=== PATIENT | male | born 1975 | race Caucasian/White ===

== ENCOUNTER → 2017-04-14 | Outpatient (CLI) | payer MEDICAID ==
--- NOTE | 2017-04-15 00:32 | US ---
EXAMINATION TYPE: US venous doppler duplex LE LT DATE OF EXAM: 04/15/2017 12:17 AM COMPARISON: NONE CLINICAL HISTORY: left leg edema and pain. Left leg pain and edema SIDE PERFORMED: Left TECHNIQUE: The lower extremity deep venous system is examined utilizing real time linear array sonog alberto with graded compression, doppler sonography and color-flow sonography. VESSELS IMAGED: External Iliac Vein (EIV) Common Femoral Vein Deep Femoral Vein Greater Saphenous Vein * Femoral Vein Popliteal Vein Small Saphenous Vein * Proximal Calf Veins (* superficial vessels) Left Leg: Negative for DVT. Complex area left knee posterior measuring 6.4 x 2.3 x 4.2cm suggestiv e of bakers cyst. IMPRESSION: No evidence of deep venous thrombosis in the left leg. Popliteal cyst is present.
== END | disposition home or self-care (01) ==
LOC: RADUSMAIN 23:39
PROVIDERS: ATTEND Physician Assistant
DX: R22.42 Localized swelling, mass and lump, left lower limb (principal)

== ENCOUNTER → 2017-10-23 | Outpatient (CLI) | payer MEDICAID ==
[2017-10-23 03:02] LABS: Basophils # (A) 0.1 k/uL (0-0.2); Basophils % (A) 1 %; Eosinophils # (A) 0.1 k/uL (0-0.7); Eosinophils % (A) 1 %; HCT 45.8 % (39.0-53.0); HGB 15.1 gm/dL (13.0-17.5); Lymphocytes # (A) 2.7 k/uL (1.0-4.8); Lymphocytes % (A) 41 %; MCH 29.2 pg (25.0-35.0); MCV 88.6 fL (80.0-100.0); Mean Platelet Volume 7.6; Monocytes # (A) 0.4 k/uL (0-1.0); Monocytes % (A) 6 %; Neutrophils # (A) 3.1 k/uL (1.3-7.7); Neutrophils % (A) 48 %; Platelet Count 206 k/uL (150-450); RBC 5.18 m/uL (4.30-5.90); RDW 13.4 % (11.5-15.5); WBC 6.5 k/uL (3.8-10.6)
[2017-10-23 03:03] LABS: ALT 64 U/L (21-72); AST 36 U/L (17-59); Albumin 4.5 g/dL (3.5-5.0); Alkaline Phosphatase 108 U/L (38-126); Anion Gap 12 mmol/L; Blood Urea Nitrogen 18 mg/dL (9-20); Calcium 10.3 mg/dL (8.4-10.2); Carbon Dioxide 25 mmol/L (22-30); Chloride 99 mmol/L (98-107); Potassium 4.5 mmol/L (3.5-5.1); Sodium 136 mmol/L (137-145); Total Bilirubin 0.7 mg/dL (0.2-1.3); Total Protein 7.3 g/dL (6.3-8.2)
[2017-10-23 03:41] LABS: Glucose 489 mg/dL (74-99)
[2017-10-23 13:52] LABS: Hemoglobin A1C 16.5 % (4.0-6.0)
== END | disposition home or self-care (01) ==
LOC: LABMAIN 10-22 21:50
PROVIDERS: ATTEND Nurse Practitioner
DX: R11.10 Vomiting, unspecified (principal); R63.4 Abnormal weight loss
CPT/HCPCS: 36415; 80053; 82009; 83036; 85025

== ENCOUNTER → 2017-11-08 | Outpatient (CLI) | payer MEDICAID ==
[2017-11-08 02:52] LABS: ALT 46 U/L (21-72); AST 33 U/L (17-59); Albumin 4.3 g/dL (3.5-5.0); Alkaline Phosphatase 70 U/L (38-126); Anion Gap 10 mmol/L; Blood Urea Nitrogen 25 mg/dL (9-20); Calcium 9.5 mg/dL (8.4-10.2); Carbon Dioxide 23 mmol/L (22-30); Chloride 104 mmol/L (98-107); Glucose 123 mg/dL (74-99); Potassium 4.4 mmol/L (3.5-5.1); Sodium 137 mmol/L (137-145); Total Bilirubin 0.7 mg/dL (0.2-1.3); Total Protein 7.1 g/dL (6.3-8.2)
== END | disposition home or self-care (01) ==
LOC: LABMAIN 02:17
PROVIDERS: ATTEND Family Medicine
DX: E11.9 Type 2 diabetes mellitus without complications (principal)
CPT/HCPCS: 36415; 80053; 82009

== ENCOUNTER → 2020-02-24 | Outpatient (CLI) | payer MEDICAID | END | disposition home or self-care (01) | LOC: LABMAIN 01:07 | PROVIDERS: ATTEND Nurse Practitioner | DX: Z53.9 Procedure and treatment not carried out, unspecified reason (principal) ==

== ENCOUNTER → 2020-02-24 | Outpatient (CLI) | payer MEDICAID | END | disposition home or self-care (01) | LOC: LABMAIN 18:47 | PROVIDERS: ATTEND Nurse Practitioner | DX: Z53.9 Procedure and treatment not carried out, unspecified reason (principal) ==

== ENCOUNTER → 2020-02-26 | Outpatient (CLI) | payer MEDICAID | END | disposition home or self-care (01) | LOC: LABMAIN 01:26 | PROVIDERS: ATTEND Emergency Medicine | DX: Z53.9 Procedure and treatment not carried out, unspecified reason (principal) ==

== ENCOUNTER → 2020-03-09 | Outpatient (CLI) | payer MEDICAID ==
[2020-03-10 04:17] LABS: C-Peptide 2.34 ng/mL (0.81-3.85)
[2020-03-10 05:29] LABS: Anti-DNA, DS unit <1.0 IU/mL; DNA Double-Stranded NEGATIVE (NEGATIVE)
[2020-03-10 06:37] LABS: Prolactin 19.5 ng/mL (2.1-17.7)
[2020-03-10 07:18] LABS: C Reactive Protein <0.4 mg/dL (0.0-0.8); Uric Acid 4.5 mg/dL (3.7-8.7)
[2020-03-10 07:49] LABS: Rheumatoid Factor, Qnt <4 IU/mL (0-13)
[2020-03-13 07:58] LABS: HLA B27 NEGATIVE
[2020-03-14 12:03] LABS: Growth Hormone, Human 31.1 ng/mL (<10)
== END | disposition home or self-care (01) ==
LOC: LABMAIN 18:59
PROVIDERS: ATTEND Family Medicine
DX: E11.41 Type 2 diabetes mellitus with diabetic mononeuropathy (principal); M25.50 Pain in unspecified joint; E22.0 Acromegaly and pituitary gigantism
CPT/HCPCS: 36415; 82533; 83003; 84146; 84305; 84403; 84550; 84681; 85652; 86038; 86140; 86225; 86337; 86431; 86812

== ENCOUNTER → 2020-03-10 | Outpatient (CLI) | payer MEDICAID ==
--- NOTE | 2020-03-10 09:18 | ECHOF ---
Referral Reason:R00.2 Palpitations MEASUREMENTS -------- HEIGHT: 182.9 cm WEIGHT: 101.6 kg BP: 120/78 RVIDd: 3.8 cm (< 3.3) IVSd: 1.5 cm (0.6 - 1.1) LVIDd: 4.5 cm (3.9 - 5.3) LVPWd: 1.4 cm (0.6 - 1.1) IVSs: 2.2 cm LVIDs: 2.8 cm LVPWs: 2.0 cm LA Diam: 4.5 cm (2.7 - 3.8) LAESV Index (A-L): 29.54 ml/m Ao Diam: 3.8 cm (2.0 - 3.7) AV Cusp: 2.5 cm (1.5 - 2.6) MV EXCURSION: 26.377 mm (> 18.000) MV EF SLOPE: 85 mm/s (70 - 150) EPSS: 0.2 cm MV E Alfredito: 0.67 m/s MV DecT: 227 ms MV A Alfredito: 0.68 m/s MV E/A Ratio: 0.99 RAP: 5.00 mmHg RVSP: 26.04 mmHg FINDINGS -------- Sinus rhythm. This was a technically good study. The left ventricular size is normal. There is moderate concentric left ventricular hypertrophy. O verall left ventricular systolic function is normal with, an EF between 60 - 65 %. The right ventricle is mild to moderately enlarged. LA is midly dilated 29-33ml/m2. The right atrium is normal in size. Interatrial and interventricular septum intact. The aortic valve is trileaflet and appears structurally normal. There is trace to mild mitral regurgitation. Mild tricuspid regurgitation present. Right ventricular systolic pressure is normal at < 35 mmHg. Trace/mild (physiologic) pulmonic regurgitation. The aortic root is dilated measuring 3.8cm. Normal inferior vena cava with normal inspiratory collapse consistent with estimated right atrial pre ssure of 5 mmHg. There is no pericardial effusion. CONCLUSIONS -------- 1. The left ventricular size is normal. 2. There is moderate concentric left ventricular hypertrophy. 3. Overall left ventricular systolic function is normal with, an EF between 60 - 65 %. 4. The right ventricle is mild to moderately enlarged. 5. LA is midly dilated 29-33ml/m2. 6. The aortic valve is trileaflet and appears structurally normal. 7. There is trace to mild mitral regurgitation. 8. Mild tricuspid regurgitation present. 9. Trace/mild (physiologic) pulmonic regurgitation. 10. The aortic root is dilated measuring 3.8cm. 11. There is no pericardial effusion. SERVER SYSTEMS ADMINISTRATOR: Clotilde Urias RDCS
== END | disposition home or self-care (01) ==
LOC: RADECHMAIN 07:07
PROVIDERS: ATTEND Family Medicine
DX: I08.1 Rheumatic disorders of both mitral and tricuspid valves (principal); I09.89 Other specified rheumatic heart diseases
CPT/HCPCS: 93306

== ENCOUNTER → 2020-03-10 | Outpatient (CLI) | payer MEDICAID ==
--- NOTE | 2020-03-10 08:01 | MR ---
EXAMINATION TYPE: MR pituitary wo/w con DATE OF EXAM: 03/10/2020 COMPARISON: NONE HISTORY: Acromegaly and pituitary giantism TECHNIQUE: Multiplanar, multisequence images of the brain and brainstem is performed without and with IV contras t, utilizing 10 mL intravenous Gadavist . Pituitary gland protocol. FINDINGS: There is large heterogeneous solid mass with superior convex margin in the sella with supra sellar extension measuring 1.9 cm transversely by 1.9 cm craniocaudal dimension coronal image 11, by 1.8 cm AP diameter. Lesion is fairly isointense to the white matter on T1-weighted images and hyperin tense to the white matter on T2-weighted images, postcontrast images show rim enhancement with perhap s minimal heterogeneous enhancement of the mass. Solid mass is favored, nonsimple cyst or cystic mass not entirely excluded. Mass extends slightly greater to the left of midline. There is mass effect on the optic chiasm which is slightly superiorly displaced. Lesion abuts the supraclinoid segment of th e distal left internal carotid artery coronal image 10. Pituitary stalk is not well visualized. No ob vious bony destruction or irregular margins. Some irregular enhancement along the right posterior sup erior aspect coronal image 13 and sagittal image 10 could reflect pituitary stalk enhancement with co mpression against the adjacent brain parenchyma, other etiologies not entirely excluded. No gross hydrocephalus. Craniocervical junction maintained. IMPRESSION: There is 1.9 cm heterogeneous sellar mass with suprasellar extension with local mass effe ct. 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 Neurosurgical referral advi sed.
== END | disposition home or self-care (01) ==
LOC: RADMRIMAIN 07:04
PROVIDERS: ATTEND Family Medicine
DX: E23.6 Other disorders of pituitary gland (principal); E22.0 Acromegaly and pituitary gigantism
CPT/HCPCS: 70553; A9585

== ENCOUNTER → 2020-05-01 | Outpatient (CLI) | payer MEDICAID | END | disposition home or self-care (01) | LOC: LABWHC1 11:30 | PROVIDERS: ATTEND Registered Nurse | DX: E23.2 Diabetes insipidus (principal) | CPT/HCPCS: 36415; 84295 ==

== ENCOUNTER → 2020-05-04 | Outpatient (CLI) | payer MEDICAID | END | disposition home or self-care (01) | LOC: LABMAIN 12:08 | PROVIDERS: ATTEND Registered Nurse | DX: E23.2 Diabetes insipidus (principal) | CPT/HCPCS: 36415; 84295 ==

== ENCOUNTER → 2020-05-04 | Outpatient (CLI) | payer MEDICAID | END | disposition home or self-care (01) | LOC: LABMAIN 12:12 | PROVIDERS: ATTEND Nurse Practitioner | DX: E22.0 Acromegaly and pituitary gigantism (principal) | CPT/HCPCS: 36415; 84305 ==

== ENCOUNTER → 2020-05-09 | Outpatient (CLI) | payer MEDICAID | END | disposition home or self-care (01) | LOC: LABMAIN 09:52 | PROVIDERS: ATTEND Nurse Practitioner | DX: E87.1 Hypo-osmolality and hyponatremia (principal) | CPT/HCPCS: 36415; 84295 ==

== ENCOUNTER → 2020-05-11 | Outpatient (CLI) | payer MEDICAID | END | disposition home or self-care (01) | LOC: LABMAIN 10:27 | PROVIDERS: ATTEND Physician Assistant Surgical | DX: E87.1 Hypo-osmolality and hyponatremia (principal) | CPT/HCPCS: 36415; 84295 ==

== ENCOUNTER → 2020-06-02 | Outpatient (CLI) | payer MEDICAID | END | disposition home or self-care (01) | LOC: LABMAIN 08:51 | PROVIDERS: ATTEND Internal Medicine | DX: E22.0 Acromegaly and pituitary gigantism (principal) | CPT/HCPCS: 36415; 82533 ==

== ENCOUNTER → 2020-08-17 | Outpatient (CLI) | payer MEDICAID ==
[2020-08-17 17:14] LABS: Follicle Stimulating Hormone 8.8 mIU/mL; Luteinizing Hormone 4.5 mIU/mL; T4, Free (Free Thyroxine) 1.6 ng/dL (0.80-1.80)
[2020-08-18 13:50] LABS: Growth Hormone, Human 0.6 ng/mL (<10)
== END | disposition home or self-care (01) ==
LOC: LABMAIN 08:27
PROVIDERS: ATTEND Internal Medicine
DX: E22.0 Acromegaly and pituitary gigantism (principal)
CPT/HCPCS: 36415; 82040; 83001; 83002; 83003; 84270; 84305; 84403; 84439; 84443

== ENCOUNTER → 2020-12-15 | Outpatient (CLI) | payer MEDICAID ==
[2020-12-15 07:32] LABS: Basophils # (A) 0.1 k/uL (0-0.2); Basophils % (A) 1 %; Eosinophils # (A) 0.1 k/uL (0-0.7); Eosinophils % (A) 2 %; HGB 14.3 gm/dL (13.0-17.5); Lymphocytes % (A) 32 %; MCH 29.5 pg (25.0-35.0); MCHC 33.3 g/dL (31.0-37.0); MCV 88.7 fL (80.0-100.0); Mean Platelet Volume 7.7; Monocytes # (A) 0.4 k/uL (0-1.0); Monocytes % (A) 7 %; Neutrophils # (A) 3.4 k/uL (1.3-7.7); Neutrophils % (A) 55 %; Platelet Count 174 k/uL (150-450); RBC 4.84 m/uL (4.30-5.90); RDW 13.2 % (11.5-15.5); WBC 6.2 k/uL (3.8-10.6)
[2020-12-15 12:54] LABS: African American GFR (CKD) 120.8 (60.0-200.0); Albumin 4.9 g/dL (3.8-4.9); Albumin/Globulin Ratio 2.04 (1.60-3.17); Anion Gap 12.9 mmol/L (4.00-12.00); BUN/Creat Ratio 21.33 Ratio (12.00-20.00); Blood Urea Nitrogen 19.2 mg/dL (9.0-27.0); Calcium 9.4 mg/dL (8.7-10.3); Carbon Dioxide 21.1 mmol/L (21.6-31.8); Chol/HDL Ratio 3.22 Ratio; Globulin 2.4 g/dL (1.6-3.3); HDL Cholesterol 45.6 mg/dL (40.00-60.00); LDL Cholesterol,Calculated 79.8 mg/dL (0.0-131.0); Non-African American GFR(CKD) 104.2 (60.0-200.0); Potassium 4.5 mmol/L (3.5-5.5); Prolactin 16.8 ng/mL (2.100-17.700); Total Bilirubin 0.4 mg/dL (0.30-1.20); Total Protein 7.3 g/dL (6.2-8.2); VLDL Calculation 21.6 mg/dL (5.00-40.00)
[2020-12-15 13:02] LABS: Insulin Level 10.6 mIU/mL (3.0-25.0)
[2020-12-16 02:49] LABS: Gliadin AB IgA, Deaminated NEGATIVE (NEGATIVE); Gliadin AB IgA, Unit 3.2 U/mL; Gliadin AB IgG, Deaminated NEGATIVE (NEGATIVE)
== END | disposition home or self-care (01) ==
LOC: LABMAIN 06:46
PROVIDERS: ATTEND Family Medicine
DX: Z00.00 Encounter for general adult medical examination without abnormal findings (principal); T78.1XXA Other adverse food reactions, not elsewhere classified, initial encounter; E22.0 Acromegaly and pituitary gigantism; E78.5 Hyperlipidemia, unspecified; R63.5 Abnormal weight gain
CPT/HCPCS: 36415; 80053; 80061; 82533; 82550; 82785; 83516; 83525; 84146; 84443; 85025; 86001

== ENCOUNTER 2021-02-07 11:26 | Day surgery (SDC) | payer MEDICAID ==
[2021-02-05 16:03] VITALS: BMI 32.5
[~2021-02-07 11:26] MED LIST: LACTATED RINGERS 1,000 ML IV SCH; LIDOCAINE 1% (10MG/ML) FOR IV START INTRADERMA PRN
[2021-02-07 12:01] VITALS: RESP 16; TEMP 97
[2021-02-07 12:12] LABS: Glucose,Whole Blood 95 mg/dL (75-99)
[2021-02-07] MEDS ORDERED: PROPOFOL 10 MG/ML 20 ML VIAL IV ONE (12:32)
--- NOTE | 2021-02-07 12:49 | P.PCN ---
Date of Procedure: 02/07/21 Procedure(s) Performed: BRIEF HISTORY: Patient is a 45-year-old pleasant male scheduled for an elective colonoscopy as a part of screening for colon cancer. He was recently diagnosed with pituitary macroadenoma for which she underwent surgery in April of this year. Since then has been having some abdominal bloating and occasional change in bowel habits. He was advised to have a colonoscopy because of increased risk of colon polyps. PROCEDURE PERFORMED: Colonoscopy. PREOPERATIVE DIAGNOSIS: Screening for colon cancer. IV sedation per Anesthesia. PROCEDURE: After informed consent was obtained, the patient, was brought into the endoscopy unit. IV sedation was administered by Anesthesia under continuous monitoring. Digital rectal examination was normal. Initially the Olympus CF-160 flexible video colonoscope was then inserted in the rectum, gradually advanced into the cecum without any difficulty. Careful examination was performed as the scope was gradually being withdrawn. Ileocecal valve and the appendiceal orifice were visualized and appeared normal. Prep was excellent. Mucosa of the cecum, ascending colon, transverse colon, descending colon, sigmoid colon, and rectum appeared normal. Scattered sigmoid diverticulosis. Scattered sigmoid diverticulosis Retroflexion was performed in the rectum and no lesions were seen. The patient tolerated the procedure well. IMPRESSION: Normal-appearing colon from rectum to cecum with no evidence of colorectal neoplasia . Scattered sigmoid diverticulosis RECOMMENDATIONS: Findings of this examination were discussed with the patient as well as his family.. He was advised to have a repeat screening colonoscopy at age 52.
[2021-02-07 13:05] VITALS: BP 111/70; PULSE 68
== END 2021-02-07 13:42 | disposition home or self-care (01) ==
LOC: ORWHC2ENDO 11:26
PROVIDERS: ATTEND Internal Medicine Gastroenterology
DX: Z12.11 Encounter for screening for malignant neoplasm of colon (principal); K57.90 Diverticulosis of intestine, part unspecified, without perforation or abscess without bleeding; E11.9 Type 2 diabetes mellitus without complications; I10 Essential (primary) hypertension; E78.5 Hyperlipidemia, unspecified; Z79.899 Other long term (current) drug therapy
CPT/HCPCS: J2704; G0121

== ENCOUNTER → 2021-03-08 | Outpatient (CLI) | payer MEDICAID ==
[2021-03-09 13:44] LABS: Growth Hormone, Human 2.7 ng/mL (<10)
== END | disposition home or self-care (01) ==
LOC: LABMAIN 04:19
PROVIDERS: ATTEND Family Medicine
DX: E22.0 Acromegaly and pituitary gigantism (principal)
CPT/HCPCS: 83003; 84305

== ENCOUNTER → 2021-04-12 | Outpatient (CLI) | payer MEDICAID ==
[2021-04-16 03:14] LABS: Albumin, LC/MS/MS 4.4 g/dL (3.6-5.1); Testosterone, Free, LC/MS/MS 46.4 pg/mL (46.0-224.0)
== END | disposition home or self-care (01) ==
LOC: LABWHC1 08:24
PROVIDERS: ATTEND Internal Medicine
DX: E22.0 Acromegaly and pituitary gigantism (principal)
CPT/HCPCS: 36415; 82040; 84270; 84403

== ENCOUNTER → 2021-04-16 | Outpatient (CLI) | payer MEDICAID ==
--- NOTE | 2021-04-17 00:35 | MR ---
EXAMINATION TYPE: MR pituitary wo/w con DATE OF EXAM: 04/16/2021 COMPARISON: 03/10/2020 HISTORY: Acromegaly, Post Op MRI due to elevated IGF levels CONTRAST: Standard multiplanar, multisequence MRI departmental protocol images were obtained without contrast a nd with 11 mL intravenous Gadavist gadolinium contrast. The pituitary stalk is in the midline. Optic chiasm appears normal. Pituitary gland is small. There i s no evidence of a pituitary mass. Sella turcica appears large but is mostly filled with CSF. The anterior posterior dimension of the se lla turcica is 1.6 cm. The ventricles have normal size. There is uniform enhancement of the pituitary gland. IMPRESSION: There is a large empty sella which is the sequela of the sellar mass evident on the old exam.. No juan dence of pituitary mass. There is removal of the large sellar mass compared to old exam. No sign of r ecurrent tumor.
== END | disposition home or self-care (01) ==
LOC: RADMRIMAIN 08:15
PROVIDERS: ATTEND Internal Medicine
DX: E22.0 Acromegaly and pituitary gigantism (principal)
CPT/HCPCS: 70553; A9585